=== PATIENT | female | born 1995 | race African-American/Black ===

== ENCOUNTER 2016-12-26 17:41 | Emergency (ER) | payer BC ==
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
[2016-12-26 18:21] VITALS: BP 113/61
[2016-12-27 11:27] LABS: Syphilis Index < 0.1 Index
--- NOTE | 2016-12-28 07:35 | UC ---
Progress - Progress Note Progress Note: + mimi / yeast will ERX Diflucan 150 mg x 1 follow up with her pcp in 5 days if not better
== END 2016-12-26 20:01 | disposition home or self-care (01) ==
LOC: UCCORT 17:41
DX: Z11.3 Encounter for screening for infections with a predominantly sexual mode of transmission (principal); J45.909 Unspecified asthma, uncomplicated; Z91.040 Latex allergy status; F31.9 Bipolar disorder, unspecified; Z32.02 Encounter for pregnancy test, result negative; Z11.4 Encounter for screening for human immunodeficiency virus [HIV]
CPT/HCPCS: 36415; 84702; 86592; 87389; 87480; 87491; 87510; 87591; 87661; 99212; G0463; G0475

== ENCOUNTER 2017-07-10 08:16 | Emergency (ER) | payer BC ==
[2017-07-10 08:26] VITALS: BP 111/74
--- NOTE | 2017-07-10 08:58 | UC ---
General HPI - HPI Summary HPI Summary: 21 yo female presents c/o nose bleed this am. Awoke with bleed, now has sore throat, feels like fluid in nose. At examination, pt reports that her throat is no longer that sore. No sob / cp / palpitations. No rash. No gi issues. No h/a, ear pain. "I don't feel sick." - History of Current Complaint Chief Complaint: UCGeneralIllness Stated Complaint: NOSE BLEED Time Seen by Provider: 07/10/17 08:41 Hx Obtained From: Patient Hx Last Menstrual Period: 07/04/17 - Allergy/Home Medications Allergies/Adverse Reactions: Allergies Allergy/AdvReac Type Severity Reaction Status Date / Time Latex Allergy Mild See Comment Verified 07/10/17 08:26 PMH/Surg Hx/FS Hx/Imm Hx Previously Healthy: Yes Other History Of: Negative For: HIV, Hepatitis B, Hepatitis C, Anticoagulant Therapy - Surgical History Surgical History: None - Family History Known Family History: Positive: None, Cardiac Disease, Hypertension Family History: no cardiovascular issues in family lineage - Social History Alcohol Use: None Substance Use Type: None Smoking Status (MU): Never Smoked Tobacco - Immunization History Most Recent Influenza Vaccination: NOT CURRENT Review of Systems Constitutional: Negative Skin: Negative Eyes: Negative ENT: Epistaxis, Sore Throat Respiratory: Negative Cardiovascular: Negative Gastrointestinal: Negative Genitourinary: Negative Motor: Negative Neurovascular: Negative Musculoskeletal: Negative Neurological: Negative Psychological: Negative Is Patient Immunocompromised?: No All Other Systems Reviewed And Are Negative: Yes Physical Exam Triage Information Reviewed: Yes Appearance: Well-Nourished - sitting up. conversing easily and appropriately. Vital Signs: Initial Vital Signs Temp 97.3 F 07/10/17 08:18 Pulse 75 07/10/17 08:18 Resp 18 07/10/17 08:18 BP 111/74 07/10/17 08:18 Pulse Ox 100 07/10/17 08:18 Vital Signs Reviewed: Yes Eye Exam: Normal - grossly normal ENT: Positive: Pharynx normal, TM dull - bilat dull tm's. not erythematous. eac's unremarkable., Other - bilat nares with swollen turbinates as visible. dried ant blood left nare. no active bleeding at time of exam. Post pharynx unremarkable. Neck supple. No adenopathy appreciated. Neck exam: Normal Neck: Positive: Supple Respiratory Exam: Normal Respiratory: Positive: Chest non-tender, Lungs clear, Normal breath sounds, No respiratory distress, No accessory muscle use Cardiovascular Exam: Normal Cardiovascular: Positive: RRR, No Murmur, Pulses Normal Abdominal Exam: Normal Musculoskeletal Exam: Normal Neurological Exam: Normal - grossly nonfocal Psychological Exam: Normal - conversing easily and appropriately Skin Exam: Normal - no visible or reported rash Course/Dx - Course Course Of Treatment: no new problems in ccc. questions as posed answered to the best of my ability. - Differential Dx - Multi-Symptom Provider Diagnoses: Nose bleed Discharge - Discharge Plan Condition: Stable Disposition: HOME Patient Education Materials: Antihistamine/Decongestant (By mouth), Nosebleed ( ED) Forms: *School Release Referrals: No Primary Care Phys,NOPCP [Primary Care Provider] - Additional Instructions: Follow up with your primary care physician in your home town next week for recheck. Seek medical attention for worse or new problems in the meantime. Afrin (generic ok) spray - over the counter - to affected nare once as needed if bleeding starts. Hold pressure. If bleeding continues for more than 15minutes, please seek medical attention.
== END 2017-07-10 09:00 | disposition home or self-care (01) ==
LOC: UCCORT 08:16
DX: R04.0 Epistaxis (principal); Z91.040 Latex allergy status
CPT/HCPCS: 99211; G0463

== ENCOUNTER 2017-07-17 10:39 | Emergency (ER) | payer SELFPAY ==
[2017-07-17 11:20] VITALS: BP 116/68
--- NOTE | 2017-07-17 11:26 | UC ---
Throat Pain/Nasal Kevin HPI - HPI Summary HPI Summary: sore throat x 7 days, left ear pain , nasal congestion , no cough, no fever, no chills - History of Current Complaint Chief Complaint: UCGeneralIllness Stated Complaint: LT EAR PAIN,CHILLS,ST,TIRED(24/) Time Seen by Provider: 07/17/17 10:41 Hx Obtained From: Patient Hx Last Menstrual Period: 07/04/17 Onset/Duration: Gradual Onset, Lasting Days - 7, Still Present Severity: Moderate Cough: None Associated Signs & Symptoms: Positive: Nasal Discharge. Negative: Wheezing, Hoarseness, Sinus Discomfort, Fever, Vomiting, Rash - Allergies/Home Medications Allergies/Adverse Reactions: Allergies Allergy/AdvReac Type Severity Reaction Status Date / Time Latex Allergy Mild See Comment Verified 07/17/17 11:00 Home Medications: Home Medications Acetaminophen [Acetaminophen Extra Stren] 1,000 mg PO ONCE PRN 07/17/17 [ History Confirmed 07/17/17] PMH/Surg Hx/FS Hx/Imm Hx Previously Healthy: Yes Other History Of: Negative For: HIV, Hepatitis B, Hepatitis C, Anticoagulant Therapy - Surgical History Surgical History: None - Family History Known Family History: Positive: None, Cardiac Disease, Hypertension Family History: no cardiovascular issues in family lineage - Social History Alcohol Use: None Substance Use Type: None Smoking Status (MU): Never Smoked Tobacco - Immunization History Most Recent Influenza Vaccination: NOT CURRENT Review of Systems Constitutional: Negative Skin: Negative Eyes: Negative ENT: Sore Throat, Ear Ache, Nasal Discharge Respiratory: Negative Cardiovascular: Negative Is Patient Immunocompromised?: No All Other Systems Reviewed And Are Negative: Yes Physical Exam Triage Information Reviewed: Yes Appearance: Well-Appearing, No Pain Distress, Well-Nourished Vital Signs: Initial Vital Signs Temp 98.1 F 07/17/17 11:12 Pulse 84 07/17/17 11:12 Resp 16 07/17/17 11:12 BP 116/68 07/17/17 11:12 Pulse Ox 98 07/17/17 11:12 Vital Signs Reviewed: Yes Eyes: Positive: Conjunctiva Clear ENT: Positive: Normal ENT inspection, Hearing grossly normal, Pharynx normal Neck exam: Normal Neck: Positive: Supple, Nontender, No Lymphadenopathy Respiratory: Positive: Chest non-tender, Lungs clear, Normal breath sounds Cardiovascular: Positive: RRR, No Murmur, Pulses Normal Skin Exam: Normal Throat Pain/Nasal Course/Dx - Differential Dx/Diagnosis Provider Diagnoses: otalgia. viral illness Discharge - Discharge Plan Condition: Stable Disposition: HOME Patient Education Materials: Earache (ED), Viral Syndrome (ED) Referrals: No Primary Care Phys,NOPCP [Primary Care Provider] - 7 Days
== END 2017-07-17 11:20 | disposition home or self-care (01) ==
LOC: UCCORT 10:39
DX: B34.9 Viral infection, unspecified (principal); H92.02 Otalgia, left ear
CPT/HCPCS: 87651; 99211; G0463

== ENCOUNTER 2018-06-10 16:54 | Emergency (ER) | payer BC ==
[2018-06-10 18:09] VITALS: BP 126/82
--- NOTE | 2018-06-10 18:36 | UC ---
Respiratory Complaint HPI - HPI Summary HPI Summary: 22-year-old woman here with a chief complaint of cough chest congestion not feeling well for 2 weeks. She does have a history of asthma and she's been having wheezing and feeling congestion in her chest. The congestion in the chest and the cough is gotten worse. The albuterol helps briefly but then symptoms return. Mild sore throat some rhinorrhea. Ears are last week but they 'll hurt now. - History of Current Complaint Chief Complaint: UCRespiratory Stated Complaint: COUGH Time Seen by Provider: 06/10/18 18:21 Hx Last Menstrual Period: [id number] Pain Intensity: 0 - Allergies/Home Medications Allergies/Adverse Reactions: Allergies Allergy/AdvReac Type Severity Reaction Status Date / Time latex Allergy See Comment Verified 06/10/18 18:10 Home Medications: Home Medications Latuda 25 mg PO DAILY 06/10/18 [History Confirmed 06/10/18] PMH/Surg Hx/FS Hx/Imm Hx Respiratory History: Asthma Other History Of: Negative For: HIV, Hepatitis B, Hepatitis C, Anticoagulant Therapy - Surgical History Surgical History: None - Family History Known Family History: Positive: None, Cardiac Disease, Hypertension Family History: no cardiovascular issues in family lineage - Social History Alcohol Use: Weekly Substance Use Type: None Smoking Status (MU): Never Smoked Tobacco - Immunization History Most Recent Influenza Vaccination: NOT CURRENT Review of Systems Constitutional: Fatigue - HAS BEEN SLEEPING A LOT Skin: Negative Eyes: Negative ENT: Ear Ache, Nasal Discharge, Sinus Congestion Respiratory: Cough Cardiovascular: Negative Gastrointestinal: Negative Motor: Negative Neurovascular: Negative Musculoskeletal: Negative Neurological: Negative Psychological: Negative Is Patient Immunocompromised?: No All Other Systems Reviewed And Are Negative: Yes Physical Exam Triage Information Reviewed: Yes Appearance: No Pain Distress, Well-Nourished, Ill-Appearing - MILD Vital Signs: Initial Vital Signs Temp 97.6 F 06/10/18 18:04 Pulse 70 06/10/18 18:04 Resp 16 06/10/18 18:04 BP 126/82 06/10/18 18:04 Pulse Ox 98 06/10/18 18:04 Vital Signs Reviewed: Yes Eye Exam: Normal Eyes: Positive: Conjunctiva Clear ENT: Positive: Pharyngeal erythema, Nasal congestion, Nasal drainage, TMs normal Neck exam: Normal Neck: Positive: Supple Respiratory: Positive: No respiratory distress, Rhonchi Cardiovascular Exam: Normal Cardiovascular: Positive: RRR Musculoskeletal Exam: Normal Musculoskeletal: Positive: Strength Intact, ROM Intact Neurological Exam: Normal Neurological: Positive: Alert, Muscle Tone Normal Psychological Exam: Normal Psychological: Positive: Age Appropriate Behavior Skin Exam: Normal UC Diagnostic Evaluation - Laboratory O2 Sat by Pulse Oximetry: 98 Respiratory Course/Dx - Differential Dx/Diagnosis Provider Diagnoses: BRONCHITIS. ASTHMA EXACERBATION Discharge - Sign-Out/Discharge Documenting (check all that apply): Patient Departure All imaging exams completed and their final reports reviewed: No Studies - Discharge Plan Condition: Stable Disposition: HOME Prescriptions: Azithromycin TAB* [Zithromax TAB (Z-CABRERA) 250 mg #6 tabs] 2 tab PO .TODAY, THEN 1 DAILY #1 cabrera predniSONE TAB* [Deltasone 20 MG TAB*] 40 mg PO DAILY #10 tab Patient Education Materials: Acute Bronchitis (ED), Asthma (ED) Referrals: [facility] [Outside] [facility] [Outside] Additional Instructions: FOLLOW UP WITH YOUR DOCTOR IF NOT COMPLETELY IMPROVED. GET RECHECKED FOR ANY WORSENING OF YOUR CONDITION OR QUESTIONS OR CONCERNS. - Billing Disposition and Condition Condition: STABLE Disposition: Home
== END 2018-06-10 18:51 | disposition home or self-care (01) ==
LOC: UCEAST 16:54
DX: J45.901 Unspecified asthma with (acute) exacerbation (principal); Z91.040 Latex allergy status
CPT/HCPCS: 99212; G0463

== ENCOUNTER 2018-07-28 12:11 | Emergency (ER) | payer BC, MEDICAID ==
[2018-07-28 12:35] VITALS: BP 121/81
--- NOTE | 2018-07-28 12:52 | UC ---
Throat Pain/Nasal Kevin HPI - HPI Summary HPI Summary: Pt presents with c/o ST. Pt was diagnosed with strep throat 2 weeks ago, did not finish amoxicillin as prescribed. - History of Current Complaint Chief Complaint: UCGeneralIllness Stated Complaint: SORE THROAT Time Seen by Provider: 07/28/18 12:36 Hx Obtained From: Patient Hx Last Menstrual Period: 07/12/18 ?: No Onset/Duration: Sudden Onset, Lasting Days, Still Present Severity: Moderate Pain Intensity: 5 Cough: Nonproductive Associated Signs & Symptoms: Positive: Dysphagia - Epiglottits Risk Factors Epiglottis Risk Factors: Negative - Allergies/Home Medications Allergies/Adverse Reactions: Allergies Allergy/AdvReac Type Severity Reaction Status Date / Time latex Allergy See Comment Verified 07/28/18 12:31 PMH/Surg Hx/FS Hx/Imm Hx Previously Healthy: Yes Other History Of: Negative For: HIV, Hepatitis B, Hepatitis C, Anticoagulant Therapy - Surgical History Surgical History: None - Family History Known Family History: Positive: None, Cardiac Disease, Hypertension Family History: no cardiovascular issues in family lineage - Social History Lives: With Family Alcohol Use: Weekly Substance Use Type: None Smoking Status (MU): Never Smoked Tobacco Have You Smoked in the Last Year: No - Immunization History Most Recent Influenza Vaccination: NOT CURRENT Review of Systems All Other Systems Reviewed And Are Negative: Yes Constitutional: Positive: Negative Skin: Positive: Negative Eyes: Positive: Negative ENT: Positive: Sore Throat Respiratory: Positive: Negative Cardiovascular: Positive: Negative Gastrointestinal: Positive: Negative Genitourinary: Positive: Negative Motor: Positive: Negative Neurovascular: Positive: Negative Musculoskeletal: Positive: Negative Neurological: Positive: Negative Psychological: Positive: Negative Is Patient Immunocompromised?: No Physical Exam Triage Information Reviewed: Yes Appearance: Well-Appearing Vital Signs: Initial Vital Signs Temp 97.4 F 07/28/18 12:30 Pulse 94 07/28/18 12:30 Resp 16 07/28/18 12:30 BP 121/81 07/28/18 12:30 Pulse Ox 100 07/28/18 12:30 Vital Signs Reviewed: Yes Eye Exam: Normal ENT: Positive: Pharyngeal erythema Dental Exam: Normal Neck exam: Normal Respiratory Exam: Normal Musculoskeletal Exam: Normal Neurological Exam: Normal Psychological Exam: Normal Skin Exam: Normal Diagnostics - Laboratory Diagnostic Studies Completed/Ordered: rapid strep: positive Throat Pain/Nasal Course/Dx - Differential Dx/Diagnosis Differential Diagnosis/HQI/PQRI: Pharyngitis, Tonsillitis Provider Diagnosis: Strep throat Discharge - Sign-Out/Discharge Documenting (check all that apply): Patient Departure All imaging exams completed and their final reports reviewed: No Studies - Discharge Plan Condition: Stable Disposition: HOME Prescriptions: Fluconazole 150 MG TAB* [Diflucan 150 MG TAB*] 150 mg PO ONCE #2 tablet Penicillin VK 500 MG TAB(NF) [Penicillin VK 500 mg Tab] 1,000 mg PO Q12H #40 tab Patient Education Materials: Strep Throat (ED) Referrals: No Primary Care Phys,NOPCP [Primary Care Provider] - [facility] [Outside] - If Needed - Billing Disposition and Condition Condition: STABLE Disposition: Home
== END 2018-07-28 13:02 | disposition home or self-care (01) ==
LOC: UCCORT 12:11
DX: J02.0 Streptococcal pharyngitis (principal); B95.0 Streptococcus, group A, as the cause of diseases classified elsewhere
CPT/HCPCS: 87651; 99212; G0463